=== PATIENT | male | born 1935 | race Caucasian/White ===

== ENCOUNTER → 2017-02-08 | Outpatient (CLI) | payer OTHER ==
[~2017-02-08] MED LIST: ALDACTONE; DIGOX0.25 MG PO; FERROUS SULFAT324 MG; FUROSEMIDE40 MG PO; INDERAL40 MG; K-DUR20 ME1; LEVOTHYROXINE25 MC1 PO; METOLAZONE5 MG PO; MULTI VIT; VIT B PO; VIT D PO; VIT E PO; VITAMIN E PO
[2017-02-08 11:13] LABS: HEMATOCRIT 36.2 % (38.0-50.0); HEMOGLOBIN 12.4 gm/dL (13.0-16.0); MEAN CELL VOLUME 96.9 FL (83-96); MEAN CORPUSCULAR HEMOGLOBIN 33.2 PG (28-34); MEAN CORPUSCULAR HGB CONC 34.2 g/dL (30-36); RED BLOOD COUNT 3.74 X10e (3.90-5.60); RED CELL DISTRIBUTION WIDTH 14.9 % (11.0-15.5); WHITE BLOOD COUNT 7.3 X10e3 (4.0-10.5)
[2017-02-08 11:26] LABS: INR 1.1; PARTIAL THROMBOPLASTIN TIME 27.2 SECONDS (23.5-31.3); PROTHROMBIN TIME (PATIENT) 11.5 SECONDS (10.0-11.7)
[2017-02-08 11:47] LABS: ALBUMIN SERUM 3.7 g/dL (3.5-5.0); BILIRUBIN,TOTAL 2.7 mg/dL (0.2-2.0); BUN/CREATININE RATIO 15.71; CALCIUM SERUM 8.8 mg/dL (8.4-10.2); CREATININE SERUM 0.7 mg/dL (0.6-1.4); GLOM FILT RATE Estimated 88.5 mL/min (>60); POTASSIUM 3.6 mmol/L (3.5-5.1); PROTEIN TOTAL SERUM 6.2 g/dL (6.0-8.3)
== END | disposition home or self-care (01) ==
LOC: CLAB 09:38
PROVIDERS: Specialist
DX: K63.89 Other specified diseases of intestine (principal)
CPT/HCPCS: 36415; 80053; 85027; 85610; 85730

== ENCOUNTER → 2017-02-14 | Outpatient (CLI) | payer MEDICARE ==
--- NOTE | ~2017-02-14 | CT134 ---
[facility] A Service of [facility] & [facility] RADIOLOGY TEXT RESULTS PATIENT: CONNOR GARCIA LOCATION: [facility] : 37 UNIT #: [id number] AGE: [address]: Lui Yun MD SEX: M ORDER DR: [id number] [facility]. [place], [place] [address] [id number] O MR#: [id number] Acc #: [id number] NAME: CONNOR GARCIA : 1935 SEX: M STUDY DATE/TIME: 02/14/2017 10:00 UNIT: [facility] ROOM: STUDY DESCRIPTION: CT Guide Attending Physician: Lui Yun M.D. Referring Physician: Lui Yun M.D. Ordering Physician: Lui Yun M.D. Primary Care Physician: Antonio Byrne M.D. MEDICAL IMAGING REPORT This report is preliminary unless electronic signature is present EXAM CT-guided abdominal mass biopsy INDICATION Mr. Garcia is an 82-year-old man who underwent a renal ultrasound on January 05, 2017. At that time, he was noted to have a mass within the lower abdomen. He subsequently underwent a CT on January 13, 2017 which confirmed the presence of this mass and he has been referred for biopsy. PROCEDURE This CT examination was performed with one or more of the following radiation dose reduction techniques: automatic exposure control, adjustment of mA and/or kV according to patient size, and iterative reconstruction. The risks, benefits, and alternatives to the procedure were explained to the patient, and signed, informed consent was obtained. The patient was placed supine on the CT scanner gantry. Preliminary CT scan was performed through the region of interest which again demonstrated a partially calcified mass within the lower abdomen/right hemipelvis. Overlying skin was marked. Patient was prepped and draped in the usual sterile fashion. Time-out was performed as per protocol. Skin and subcutaneous tissues were anesthetized with buffered lidocaine. Anesthesia needle was left in place. Repeat CT scan confirmed appropriate trajectory of the needle and subsequently a 17-gauge coaxial needle was advanced into the mass. At this point, a core sample was obtained using an 18-gauge BioPince biopsy gun. Patient was noted to have fairly vigorous backbleeding from this lesion and Gelfoam was applied to the tract. Manual pressure was then applied until hemostasis was obtained. Patient did receive moderate sedation consisting of 1.5 mg of Versed and 50 mcg of Fentanyl. I supervised the IVR nurse and monitored the patient's vital signs for a total of 35 minutes. [facility] A Service of [facility] RADIOLOGY TEXT RESULTS PATIENT: CONNOR GARCIA LOCATION: [facility] #: [id number] : 37 UNIT #: [id number] AGE: [address]: Lui Yun MD SEX: M ORDER DR: GUANACO Technically successful CT-guided abdominal mass biopsy as noted above. CT was used during the procedure and permanent images were saved. Dictated by... Anabell Iniguez M.D. THIS IS AN ELECTRONICALLY VERIFIED REPORT Anabell Iniguez M.D. at 02/16/2017 5:08 PM NOAH/dalia TD: 02/16/2017 11:21 JOB #: [id number] MEDICAL IMAGING REPORT Page 1 of 1 COPY
== END | disposition home or self-care (01) ==
LOC: CIVR 07:08
DX: C49.A9 Gastrointestinal stromal tumor of other sites (principal); I25.10 Atherosclerotic heart disease of native coronary artery without angina pectoris; I48.91 Unspecified atrial fibrillation; K21.9 Gastro-esophageal reflux disease without esophagitis
CPT/HCPCS: 77012; 88305; J2250; J3010